=== PATIENT | female | born 1960 | race African-American/Black ===

== ENCOUNTER 2021-07-30 19:27 | Observation (INO) | payer BC ==
[2021-07-30 20:44] LABS: BASO % 1.3 % (0-2.0); EOS % 0.5 % (0-4.5); HEMATOCRIT 45.7 % (32.4-45.2); HEMOGLOBIN 15.5 GM/dL (10.7-15.3); LYMPH % 28.3 % (8-40); MCH 30.6 pg (25.7-33.7); MEAN CELL VOLUME 89.9 fl (80-96); MEAN PLT VOLUME 10.6 fl (7.5-11.1); MONO % 7.6 % (3.8-10.2); NEUT % 62.3 % (42.8-82.8); PLATELET COUNT 169 10^3/uL (134-434); RBC 5.09 M/mm3 (3.60-5.2); RDW 13.3 % (11.6-15.6); WHITE BLOOD COUNT 6.1 K/mm3 (4.0-10.0)
[2021-07-30 20:51] LABS: INR 0.91 (0.83-1.09); PROTHROMBIN TIME (PATIENT) 10.6 SEC (9.7-13.0)
[2021-07-30 20:54] LABS: ACTIVATED PTT 26.7 SECONDS (25.2-36.5)
[2021-07-30 21:01] LABS: VENOUS BASE EXCESS 1.1 mmol/L (-2-2); VENOUS O2 SATURATION 28.4 % (70-80); VENOUS PCO2 51.3 mmHg (38-52); VENOUS PH 7.35 (7.310-7.410)
[2021-07-30 21:03] LABS: CHLORIDE 93 mmol/L (98-107); SODIUM 133 mmol/L (136-145)
[2021-07-30 21:05] LABS: BLOOD UREA NITROGEN 14.8 mg/dL (7-18); CALCIUM 9.5 mg/dL (8.5-10.1)
[2021-07-30] MEDS ORDERED: LACTATED RINGERS SOLUTION 1000 ML INFUS.BAG IV ONE ×2 (21:05→21:18)
[2021-07-30 21:06] LABS: ALBUMIN 4.2 g/dl (3.4-5.0); ANION GAP 9 MMOL/L (8-16); CO2 31 mmol/L (21-32); MAGNESIUM 2.7 mg/dL (1.8-2.4)
[2021-07-30 21:08] LABS: CREATININE 1.3 mg/dL (0.55-1.3)
[2021-07-30 21:09] LABS: PHOSPHOROUS 3.6 mg/dL (2.5-4.9)
[2021-07-30 21:10] LABS: ALK PHOS 185 U/L (45-117); BILIRUBIN,TOTAL 0.7 mg/dL (0.2-1); TOT PROT 8.7 g/dl (6.4-8.2)
[2021-07-30 21:18] LABS: URINE APPEARANCE CLEAR; URINE BILIRUBIN NEGATIVE (NEGATIVE); URINE COLOR YELLOW; URINE GLUCOSE (UA) 3+ (NEGATIVE); URINE KETONE 1+ (NEGATIVE); URINE LEUK ESTERASE NEGATIVE (NEGATIVE); URINE NITRITE NEGATIVE (NEGATIVE); URINE PROTEIN NEGATIVE (NEGATIVE); URINE UROBILINOGEN 0.2 mg/dL (0.2-1.0)
[2021-07-30 21:37] LABS: GLUCOSE,RANDOM 756 mg/dL (74-106); SGOT/AST 25 U/L (15-37); SGPT/ALT 39 U/L (13-61)
[2021-07-30 22:10] LABS: CHLORIDE 96 mmol/L (98-107); SODIUM 133 mmol/L (136-145)
[2021-07-30 22:13] LABS: CALCIUM 8.8 mg/dL (8.5-10.1)
[2021-07-30 22:14] LABS: ANION GAP 9 MMOL/L (8-16); BLOOD UREA NITROGEN 14.8 mg/dL (7-18); CO2 29 mmol/L (21-32)
[2021-07-30 22:17] LABS: CREATININE 1.2 mg/dL (0.55-1.3)
[2021-07-30 22:29] LABS: GLUCOSE,RANDOM 676 mg/dL (74-106)
[2021-07-31] MEDS ORDERED: INSULIN REGULAR HUMAN 100 UNITS/ML *VIAL SQ ONE
[2021-07-31] MEDS ORDERED: KCL 10 MEQ IVPB 10 MEQ/100 ML INFUS.BAG IVPB SCH
[2021-07-31] MEDS ORDERED: POTASSIUM CHLORIDE TABS 20 MEQ TABLET.ER (FP) PO ONE ×2 (01:11)
[2021-07-31] MEDS ORDERED: KCL 10 MEQ IVPB 10 MEQ/100 ML INFUS.BAG IVPB ONE (01:11)
[2021-07-31] MEDS ORDERED: INSULIN REGULAR HUMAN 100 UNITS/ML *VIAL ONE (01:12)
[2021-07-31] MEDS ORDERED: INSULIN (NOVOLOG) ASPART 100 UNITS/ML 10ML VIAL SQ ONE (01:32)
[2021-07-31] MEDS ORDERED: SODIUM CHLORIDE 1,000 ML IV STA ×2 (04:23→04:34)
[2021-07-31] MEDS ORDERED: ACETAMINOPHEN 325 MG TABLET (FP) PO PRN (04:35)
[2021-07-31] MEDS ORDERED: POLYETHYLENE GLYCOL 3350 119 GM BTL PO PRN (04:35)
[2021-07-31 05:43] LABS: BASO % 0.2 % (0-2.0); EOS % 0.2 % (0-4.5); HEMATOCRIT 38.2 % (32.4-45.2); HEMOGLOBIN 13.5 GM/dL (10.7-15.3); LYMPH % 14.9 % (8-40); MCH 30.7 pg (25.7-33.7); MCHC 35.4 g/dl (32.0-36.0); MEAN CELL VOLUME 86.7 fl (80-96); MEAN PLT VOLUME 10.7 fl (7.5-11.1); MONO % 7.3 % (3.8-10.2); NEUT % 77.4 % (42.8-82.8); PLATELET COUNT 156 10^3/uL (134-434); RBC 4.41 M/mm3 (3.60-5.2); RDW 12.9 % (11.6-15.6)
[2021-07-31 06:04] LABS: CHLORIDE 105 mmol/L (98-107); SODIUM 139 mmol/L (136-145)
[2021-07-31 06:07] LABS: ANION GAP 8 MMOL/L (8-16); BLOOD UREA NITROGEN 15.7 mg/dL (7-18); CO2 26 mmol/L (21-32); GLUCOSE,RANDOM 400 mg/dL (74-106)
[2021-07-31] MEDS ORDERED: Insulin (LOG) Aspart 100 UNITS/ML VIAL SQ ONE ×2 (07:45→07:48)
[2021-07-31 08:21] LABS: CALCIUM 8.7 mg/dL (8.5-10.1)
[2021-07-31 08:22] LABS: BLOOD UREA NITROGEN 15.1 mg/dL (7-18)
[2021-07-31 08:55] LABS: MAGNESIUM 2.2 mg/dL (1.8-2.4)
[2021-07-31] MEDS: ENOXAPARIN NA (PORCINE) 40 MG/0.4 ML DISP.SYRIN SQ SCH (10:30)
[2021-07-31] MEDS: INSULIN SLIDING SCALE (NOVOLOG) 1 VIAL SQ SCH ×3 (11:31→20:24)
[2021-07-31] MEDS ORDERED: INSULIN (LEVEMIR) 100 UNITS/ML UNITS SQ SCH (22:00)
[2021-08-01] MEDS ORDERED: Insulin (LOG) Aspart 100 UNITS/ML VIAL SQ ONE (00:30)
[2021-08-01] MEDS: INSULIN SLIDING SCALE (NOVOLOG) 1 VIAL SQ SCH ×2 (06:23→12:25)
[2021-08-01] MEDS ORDERED: metFORMIN HCL 500 MG TABLET (FP) PO SCH (07:00)
[2021-08-01] MEDS ORDERED: INSULIN (LEVEMIR) 100 UNITS/ML UNITS SQ SCH (07:00)
[2021-08-01 09:13] LABS: BLOOD UREA NITROGEN 13.3 mg/dL (7-18); CALCIUM 8.4 mg/dL (8.5-10.1)
[2021-08-01 09:16] LABS: CREATININE 0.7 mg/dL (0.55-1.3)
[2021-08-01] MEDS: ENOXAPARIN NA (PORCINE) 40 MG/0.4 ML DISP.SYRIN SQ SCH (10:52)
[2021-08-01 13:40] VITALS: BP 121/62; PULSE 93; TEMP 98.7
[2021-08-01 14:42] VITALS: BMI 34.8
== END 2021-08-01 16:11 | disposition home or self-care (01) ==
LOC: JER 19:27 → JERBED 07-31 00:12 → INTOOBSV 07-31 00:12 → UNDOADMOB 07-31 00:12 → JERBED 07-31 06:51 → J5S 07-31 06:51 → JERBED 07-31 10:39 → J5S 07-31 10:39
PROVIDERS: ADMIT Internal Medicine; ATTEND Internal Medicine
PROC: 3E023GC Introduction of Other Therapeutic Substance into Muscle, Percutaneous Approach (ICD-10-PCS; principal; 2021-07-31)
PROC: 3E013VG Introduction of Insulin into Subcutaneous Tissue, Percutaneous Approach (ICD-10-PCS; 2021-07-31)
PROC: 3E0337Z Introduction of Electrolytic and Water Balance Substance into Peripheral Vein, Percutaneous Approach (ICD-10-PCS; 2021-07-31)
PROC: 3E033GC Introduction of Other Therapeutic Substance into Peripheral Vein, Percutaneous Approach (ICD-10-PCS; 2021-07-31)
DX: E13.10 Other specified diabetes mellitus with ketoacidosis without coma (principal); E66.8 Other obesity; Z68.34 Body mass index [BMI] 34.0-34.9, adult; Z90.79 Acquired absence of other genital organ(s); R63.4 Abnormal weight loss; R06.02 Shortness of breath; R14.0 Abdominal distension (gaseous); K59.00 Constipation, unspecified
CPT/HCPCS: 36415; 71045-TC-FY; 80048; 80053; 81003; 82010; 82803; 82962; 83036; 83735; 83930; 84100; 84484; 85025; 85610; 85730; 87086; 93005; 93010; 96361; 96365; 96372; 99285-25; C9803; G0378; U0003; U0005